=== PATIENT | male | born 1980 | race Caucasian/White ===

== ENCOUNTER 2018-07-09 22:27 | Inpatient (IN) | payer OTHER ==
[~2018-07-09] VITALS: Ht 182.9 cm; Wt 110.9 kg
[2018-07-09 22:26] VITALS: BP 121/59
[2018-07-09 23:10] LABS: BASOPHIL % 0.4 % (0-2); PLATELET COUNT 145 x10^3mcL (130-400); RED CELL DISTRIBUTION WIDTH 14.3 % (11.5-14.5)
[2018-07-09 23:26] LABS: CALCIUM 9.3 mg/dL (8.5-10.1); CARBON DIOXIDE 18.5 mmol/L (21-32); CREATININE SERUM 2.2 mg/dL (0.7-1.3); POTASSIUM SERUM 3.6 mmol/L (3.5-5.1)
[2018-07-09 23:30] LABS: AMPHETAMINE QUAL UR NONE DETECTED (See below)
[2018-07-09 23:30] LABS: ALBUMIN 2.7 g/dL (3.4-5.0); BILIRUBIN TOTAL 0.11 mg/dL (0.20-1.00); TOTAL PROTEIN, SERUM 5.8 g/dL (6.4-8.2)
[2018-07-10] VITALS (18 sets, daily range): BP systolic 68–126; BP diastolic 42–85
[2018-07-10 02:08] LABS: MAGNESIUM 2.7 mg/dL (1.8-2.4)
[2018-07-10 02:36] LABS: PHOSPHOROUS 14.2 mg/dL (2.5-4.9)
[2018-07-10 03:19] LABS: BASOPHIL % 0.3 % (0-2); RED CELL DISTRIBUTION WIDTH 14.1 % (11.5-14.5)
[2018-07-10 03:20] LABS: CALCIUM 7.6 mg/dL (8.5-10.1); CREATININE SERUM 2.6 mg/dL (0.7-1.3); POTASSIUM SERUM 4.1 mmol/L (3.5-5.1)
[2018-07-10 03:24] LABS: MAGNESIUM 2.4 mg/dL (1.8-2.4)
[2018-07-10 03:44] LABS: PHOSPHOROUS 9.8 mg/dL (2.5-4.9); PLATELET COUNT 168 x10^3mcL (130-400)
[2018-07-10 05:27] LABS: BILIRUBIN DIRECT 0.11 mg/dL (0.0-0.2); BILIRUBIN TOTAL 0.38 mg/dL (0.20-1.00)
[2018-07-10 05:34] LABS: ALBUMIN 2.7 g/dL (3.4-5.0); TOTAL PROTEIN, SERUM 5.7 g/dL (6.4-8.2)
[2018-07-10 06:10] LABS: BASOPHIL % 0.1 % (0-2); RED CELL DISTRIBUTION WIDTH 14.3 % (11.5-14.5)
[2018-07-10 06:27] LABS: PLATELET COUNT 169 x10^3mcL (130-400)
[2018-07-10 09:04] LABS: rbc morphology (normal/abnorm) ABNORMAL (NORMAL)
[2018-07-10 12:30] LABS: CALCIUM 7.3 mg/dL (8.5-10.1); CARBON DIOXIDE 26.3 mmol/L (21-32); CREATININE SERUM 3.7 mg/dL (0.7-1.3); POTASSIUM SERUM 4.3 mmol/L (3.5-5.1)
[2018-07-11] VITALS (14 sets, daily range): BP systolic 108–165; BP diastolic 36–69
[2018-07-11 05:24] LABS: PLATELET COUNT 137 x10^3mcL (130-400)
[2018-07-11 05:25] LABS: CALCIUM 6.5 mg/dL (8.5-10.1); CARBON DIOXIDE 21.7 mmol/L (21-32)
[2018-07-11 05:30] LABS: CREATININE SERUM 6.5 mg/dL (0.7-1.3); POTASSIUM SERUM 7.4 mmol/L (3.5-5.1)
[2018-07-11 05:42] LABS: RED CELL DISTRIBUTION WIDTH 14.7 % (11.5-14.5)
[2018-07-11 06:07] LABS: MONOCYTE 3 % (0-7); SEGMENTED NEUTROPHILS 75 % (37-75)
[2018-07-11 06:08] LABS: BAND NEUTROPHIL 14 % (0-10); METAMYELOCTE 4 % (0-2); MYELOCYTE 1 % (0-2)
[2018-07-11 06:14] LABS: PLATELET MORPHOLOGY PLATELETS DECREASED; burr cell (echinocyte) 1+; rbc morphology (normal/abnorm) ABNORMAL (NORMAL)
[2018-07-11 11:19] LABS: BILIRUBIN DIRECT 0.14 mg/dL (0.0-0.2); BILIRUBIN TOTAL 0.43 mg/dL (0.20-1.00)
[2018-07-11 11:31] LABS: ALBUMIN 2.1 g/dL (3.4-5.0); TOTAL PROTEIN, SERUM 5.3 g/dL (6.4-8.2)
[2018-07-11 15:23] LABS: UA SPECIFIC GRAVITY >=1.030 (1.005-1.035); microscopic required? YES; urine erythrocyte 3+ (NEGATIVE)
[2018-07-11 15:32] LABS: PLATELET COUNT 117 x10^3mcL (130-400); RED CELL DISTRIBUTION WIDTH 14.7 % (11.5-14.5)
[2018-07-11 15:39] LABS: BILIRUBIN TOTAL 0.5 mg/dL (0.20-1.00); CALCIUM 6.9 mg/dL (8.5-10.1); CARBON DIOXIDE 19.1 mmol/L (21-32)
[2018-07-11 15:41] LABS: ALBUMIN 1.8 g/dL (3.4-5.0); TOTAL PROTEIN, SERUM 5.1 g/dL (6.4-8.2)
[2018-07-11 15:42] LABS: CREATININE SERUM 7.6 mg/dL (0.7-1.3); POTASSIUM SERUM 7.1 mmol/L (3.5-5.1)
[2018-07-11 15:43] LABS: BAND NEUTROPHIL 10 % (0-10); BASOPHIL 0 % (0-2); METAMYELOCTE 1 % (0-2); MONOCYTE 2 % (0-7); SEGMENTED NEUTROPHILS 82 % (37-75)
[2018-07-11 15:44] LABS: rbc morphology (normal/abnorm) ABNORMAL (NORMAL)
[2018-07-11 18:35] LABS: CALCIUM 6.9 mg/dL (8.5-10.1); CARBON DIOXIDE 22.9 mmol/L (21-32)
[2018-07-11 18:37] LABS: CREATININE SERUM 8.4 mg/dL (0.7-1.3); POTASSIUM SERUM 5.8 mmol/L (3.5-5.1)
[2018-07-11 18:45] LABS: PLATELET COUNT 118 x10^3mcL (130-400)
[2018-07-11 18:57] LABS: BAND NEUTROPHIL 12 % (0-10); BASOPHIL 0 % (0-2); METAMYELOCTE 2 % (0-2); MONOCYTE 2 % (0-7); SEGMENTED NEUTROPHILS 80 % (37-75)
[2018-07-11 18:58] LABS: rbc morphology (normal/abnorm) ABNORMAL (NORMAL)
[2018-07-12] VITALS (17 sets, daily range): BP systolic 118–270; BP diastolic 65–159
[2018-07-12 00:37] LABS: PLATELET COUNT 102 x10^3mcL (130-400); RED CELL DISTRIBUTION WIDTH 15.1 % (11.5-14.5)
[2018-07-12 00:41] LABS: CALCIUM 7.4 mg/dL (8.5-10.1); CARBON DIOXIDE 20.9 mmol/L (21-32)
[2018-07-12 00:46] LABS: POTASSIUM SERUM 6.7 mmol/L (3.5-5.1)
[2018-07-12 00:47] LABS: CREATININE SERUM 8.8 mg/dL (0.7-1.3)
[2018-07-12 01:06] LABS: BAND NEUTROPHIL 17 % (0-10); METAMYELOCTE 3 % (0-2); MONOCYTE 2 % (0-7); MYELOCYTE 3 % (0-2); SEGMENTED NEUTROPHILS 70 % (37-75)
[2018-07-12 01:11] LABS: PLATELET MORPHOLOGY PLATELETS DECREASED; burr cell (echinocyte) 2+; rbc morphology (normal/abnorm) ABNORMAL (NORMAL)
[2018-07-12 05:30] LABS: PLATELET COUNT 100 x10^3mcL (130-400); RED CELL DISTRIBUTION WIDTH 15.5 % (11.5-14.5)
[2018-07-12 05:39] LABS: BILIRUBIN DIRECT 0.18 mg/dL (0.0-0.2); BILIRUBIN TOTAL 0.66 mg/dL (0.20-1.00); CALCIUM 7.3 mg/dL (8.5-10.1); CARBON DIOXIDE 23.4 mmol/L (21-32)
[2018-07-12 05:43] LABS: ALBUMIN 2.5 g/dL (3.4-5.0); BAND NEUTROPHIL 21 % (0-10); METAMYELOCTE 11 % (0-2); MYELOCYTE 3 % (0-2); SEGMENTED NEUTROPHILS 65 % (37-75); TOTAL PROTEIN, SERUM 5.6 g/dL (6.4-8.2)
[2018-07-12 05:44] LABS: POTASSIUM SERUM 5.9 mmol/L (3.5-5.1)
[2018-07-12 05:45] LABS: CREATININE SERUM 9.2 mg/dL (0.7-1.3)
[2018-07-12 05:47] LABS: burr cell (echinocyte) 2+; rbc morphology (normal/abnorm) ABNORMAL (NORMAL)
[2018-07-12 05:48] LABS: PLATELET MORPHOLOGY PLATELETS DECREASED
[2018-07-12 07:59] LABS: MAGNESIUM 1.4 mg/dL (1.8-2.4); PHOSPHOROUS 5.8 mg/dL (2.5-4.9)
[2018-07-12 11:40] LABS: BILIRUBIN DIRECT 0.15 mg/dL (0.0-0.2); BILIRUBIN TOTAL 0.63 mg/dL (0.20-1.00); CALCIUM 7.4 mg/dL (8.5-10.1); POTASSIUM SERUM 4.2 mmol/L (3.5-5.1)
[2018-07-12 11:46] LABS: ALBUMIN 2.3 g/dL (3.4-5.0); CREATININE SERUM 9.5 mg/dL (0.7-1.3); TOTAL PROTEIN, SERUM 5.6 g/dL (6.4-8.2)
[2018-07-12 11:48] LABS: PLATELET COUNT 95 x10^3mcL (130-400); RED CELL DISTRIBUTION WIDTH 14.7 % (11.5-14.5)
[2018-07-12 13:10] LABS: BAND NEUTROPHIL 14 % (0-10); BASOPHIL 0 % (0-2); METAMYELOCTE 2 % (0-2); MONOCYTE 2 % (0-7); MYELOCYTE 2 % (0-2); PLATELET MORPHOLOGY PLATELETS DECREASED; SEGMENTED NEUTROPHILS 77 % (37-75)
[2018-07-12 13:11] LABS: rbc morphology (normal/abnorm) ABNORMAL (NORMAL)
[2018-07-12 13:12] LABS: MAGNESIUM 1.9 mg/dL (1.8-2.4); PHOSPHOROUS 4.8 mg/dL (2.5-4.9)
[2018-07-12 18:25] LABS: MAGNESIUM 1.5 mg/dL (1.8-2.4); PHOSPHOROUS 3.2 mg/dL (2.5-4.9)
[2018-07-12 18:26] LABS: BILIRUBIN DIRECT 0.21 mg/dL (0.0-0.2); BILIRUBIN TOTAL 1.16 mg/dL (0.20-1.00); CARBON DIOXIDE 29.5 mmol/L (21-32); POTASSIUM SERUM 3.9 mmol/L (3.5-5.1)
[2018-07-12 18:30] LABS: ALBUMIN 2.7 g/dL (3.4-5.0)
[2018-07-12 19:15] LABS: PLATELET COUNT 99 x10^3mcL (130-400); RED CELL DISTRIBUTION WIDTH 14.5 % (11.5-14.5)
[2018-07-12 19:16] LABS: SEGMENTED NEUTROPHILS 70 % (37-75)
[2018-07-12 19:20] LABS: BAND NEUTROPHIL 25 % (0-10)
[2018-07-12 19:21] LABS: MONOCYTE 4 % (0-7); rbc morphology (normal/abnorm) ABNORMAL (NORMAL)
[2018-07-12 19:22] LABS: PLATELET MORPHOLOGY PLATELETS DECREASED
[2018-07-12 20:04] LABS: PLATELET COUNT 100 x10^3mcL (130-400); RED CELL DISTRIBUTION WIDTH 14.8 % (11.5-14.5)
[2018-07-12 20:07] LABS: BAND NEUTROPHIL 22 % (0-10); MONOCYTE 2 % (0-7); SEGMENTED NEUTROPHILS 75 % (37-75); rbc morphology (normal/abnorm) ABNORMAL (NORMAL)
[2018-07-12 20:08] LABS: PLATELET MORPHOLOGY PLATELETS DECREASED
[2018-07-13] VITALS (17 sets, daily range): BP systolic 104–188; BP diastolic 66–115
[2018-07-13 01:29] LABS: MAGNESIUM 1.5 mg/dL (1.8-2.4); PHOSPHOROUS 4.3 mg/dL (2.5-4.9)
[2018-07-13 01:48] LABS: BILIRUBIN DIRECT 0.29 mg/dL (0.0-0.2); BILIRUBIN TOTAL 1.26 mg/dL (0.20-1.00); TOTAL PROTEIN, SERUM 6.6 g/dL (6.4-8.2)
[2018-07-13 01:51] LABS: BAND NEUTROPHIL 10 % (0-10); METAMYELOCTE 3 % (0-2); MONOCYTE 1 % (0-7); PROMYELOCYTE 2 % (0-0); SEGMENTED NEUTROPHILS 83 % (37-75)
[2018-07-13 01:53] LABS: rbc morphology (normal/abnorm) NORMAL (NORMAL)
[2018-07-13 01:54] LABS: PLATELET MORPHOLOGY PLATELETS DECREASED
[2018-07-13 01:57] LABS: ALBUMIN 3.1 g/dL (3.4-5.0)
[2018-07-13 02:40] LABS: PLATELET COUNT 121 x10^3mcL (130-400)
[2018-07-13 04:48] LABS: CALCIUM 8.4 mg/dL (8.5-10.1); CARBON DIOXIDE 26.8 mmol/L (21-32); POTASSIUM SERUM 3.4 mmol/L (3.5-5.1)
[2018-07-13 04:50] LABS: CREATININE SERUM 7.9 mg/dL (0.7-1.3)
[2018-07-13 06:09] LABS: CALCIUM 8.4 mg/dL (8.5-10.1); CARBON DIOXIDE 28.2 mmol/L (21-32); PLATELET COUNT 98 x10^3mcL (130-400); POTASSIUM SERUM 3.9 mmol/L (3.5-5.1); RED CELL DISTRIBUTION WIDTH 15.3 % (11.5-14.5)
[2018-07-13 06:12] LABS: CALCIUM 8.4 mg/dL (8.5-10.1); CARBON DIOXIDE 28.3 mmol/L (21-32); POTASSIUM SERUM 3.9 mmol/L (3.5-5.1); TOTAL PROTEIN, SERUM 6.6 g/dL (6.4-8.2)
[2018-07-13 06:22] LABS: BAND NEUTROPHIL 10 % (0-10); MAGNESIUM 1.9 mg/dL (1.8-2.4); METAMYELOCTE 3 % (0-2); MONOCYTE 1 % (0-7); PROMYELOCYTE 2 % (0-0); SEGMENTED NEUTROPHILS 83 % (37-75); rbc morphology (normal/abnorm) NORMAL (NORMAL)
[2018-07-13 06:23] LABS: PLATELET MORPHOLOGY PLATELETS DECREASED
[2018-07-13 06:31] LABS: CREATININE SERUM 8.3 mg/dL (0.7-1.3)
[2018-07-13 06:32] LABS: ALBUMIN 3.1 g/dL (3.4-5.0)
[2018-07-13 06:33] LABS: CREATININE SERUM 8.4 mg/dL (0.7-1.3)
[2018-07-13 07:44] LABS: BILIRUBIN DIRECT 0.23 mg/dL (0.0-0.2); TOTAL PROTEIN, SERUM 6.6 g/dL (6.4-8.2)
[2018-07-13 07:50] LABS: ALBUMIN 3.1 g/dL (3.4-5.0)
[2018-07-13 13:01] LABS: PLATELET COUNT 89 x10^3mcL (130-400); RED CELL DISTRIBUTION WIDTH 15.4 % (11.5-14.5)
[2018-07-13 13:02] LABS: MAGNESIUM 2.1 mg/dL (1.8-2.4); PHOSPHOROUS 5.6 mg/dL (2.5-4.9)
[2018-07-13 13:08] LABS: ALBUMIN 2.8 g/dL (3.4-5.0); BILIRUBIN TOTAL 0.9 mg/dL (0.20-1.00); CALCIUM 8.4 mg/dL (8.5-10.1); CARBON DIOXIDE 28.6 mmol/L (21-32); CREATININE SERUM 8.8 mg/dL (0.7-1.3); POTASSIUM SERUM 3.8 mmol/L (3.5-5.1); TOTAL PROTEIN, SERUM 6.2 g/dL (6.4-8.2)
[2018-07-13 13:11] LABS: ALBUMIN 3.1 g/dL (3.4-5.0); BILIRUBIN DIRECT 0.23 mg/dL (0.0-0.2); BILIRUBIN TOTAL 0.96 mg/dL (0.20-1.00); TOTAL PROTEIN, SERUM 6.3 g/dL (6.4-8.2)
[2018-07-13 14:37] LABS: BAND NEUTROPHIL 15 % (0-10); SEGMENTED NEUTROPHILS 75 % (37-75)
[2018-07-13 14:38] LABS: MONOCYTE 7 % (0-7); rbc morphology (normal/abnorm) NORMAL (NORMAL)
[2018-07-13 14:39] LABS: PLATELET MORPHOLOGY PLATELETS DECREASED
[2018-07-13 19:13] LABS: CARBON DIOXIDE 25.8 mmol/L (21-32); TOTAL PROTEIN, SERUM 6.2 g/dL (6.4-8.2)
[2018-07-13 19:14] LABS: ALBUMIN 2.3 g/dL (3.4-5.0); ALBUMIN 2.8 g/dL (3.4-5.0); BILIRUBIN DIRECT 0.23 mg/dL (0.0-0.2); BILIRUBIN TOTAL 0.8 mg/dL (0.20-1.00); TOTAL PROTEIN, SERUM 5.2 g/dL (6.4-8.2)
[2018-07-13 19:27] LABS: MAGNESIUM 2.2 mg/dL (1.8-2.4); PHOSPHOROUS 6.7 mg/dL (2.5-4.9)
[2018-07-13 19:37] LABS: UA SPECIFIC GRAVITY >=1.030 (1.005-1.035); microscopic required? YES; urine erythrocyte 3+ (NEGATIVE)
[2018-07-14] VITALS (18 sets, daily range): BP systolic 104–182; BP diastolic 58–130; Ht 182.9 cm; Wt 110.9 kg
[2018-07-14 01:52] LABS: PLATELET COUNT 105 x10^3mcL (130-400); RED CELL DISTRIBUTION WIDTH 15.6 % (11.5-14.5)
[2018-07-14 01:54] LABS: MAGNESIUM 2.5 mg/dL (1.8-2.4); PHOSPHOROUS 8.1 mg/dL (2.5-4.9)
[2018-07-14 01:55] LABS: BILIRUBIN TOTAL 0.95 mg/dL (0.20-1.00); CALCIUM 8.1 mg/dL (8.5-10.1); CARBON DIOXIDE 29.1 mmol/L (21-32); POTASSIUM SERUM 4.9 mmol/L (3.5-5.1); TOTAL PROTEIN, SERUM 7.2 g/dL (6.4-8.2)
[2018-07-14 01:58] LABS: ALBUMIN 3.2 g/dL (3.4-5.0); CREATININE SERUM 10.3 mg/dL (0.7-1.3)
[2018-07-14 02:08] LABS: SEGMENTED NEUTROPHILS 90 % (37-75)
[2018-07-14 02:09] LABS: BAND NEUTROPHIL 5 % (0-10); MONOCYTE 3 % (0-7); PLATELET MORPHOLOGY PLATELETS DECREASED; rbc morphology (normal/abnorm) NORMAL (NORMAL)
[2018-07-14 07:03] LABS: BILIRUBIN TOTAL 0.89 mg/dL (0.20-1.00); CALCIUM 8.1 mg/dL (8.5-10.1); CARBON DIOXIDE 26.8 mmol/L (21-32); POTASSIUM SERUM 4.7 mmol/L (3.5-5.1); TOTAL PROTEIN, SERUM 7.1 g/dL (6.4-8.2)
[2018-07-14 07:04] LABS: ALBUMIN 3.2 g/dL (3.4-5.0); CREATININE SERUM 10.8 mg/dL (0.7-1.3)
[2018-07-14 07:06] LABS: MAGNESIUM 2.5 mg/dL (1.8-2.4); PHOSPHOROUS 6.9 mg/dL (2.5-4.9)
[2018-07-14 07:07] LABS: PLATELET COUNT 104 x10^3mcL (130-400); RED CELL DISTRIBUTION WIDTH 15.8 % (11.5-14.5)
[2018-07-14 10:55] LABS: BAND NEUTROPHIL 17 % (0-10); BASOPHIL 0 % (0-2); MONOCYTE 5 % (0-7); SEGMENTED NEUTROPHILS 76 % (37-75)
[2018-07-14 10:56] LABS: PLATELET MORPHOLOGY PLATELETS DECREASED
[2018-07-14 11:00] LABS: rbc morphology (normal/abnorm) NORMAL (NORMAL)
[2018-07-14 12:20] LABS: PLATELET COUNT 111 x10^3mcL (130-400); RED CELL DISTRIBUTION WIDTH 15.6 % (11.5-14.5)
[2018-07-14 12:22] LABS: MAGNESIUM 2.6 mg/dL (1.8-2.4); PHOSPHOROUS 6.2 mg/dL (2.5-4.9)
[2018-07-14 13:03] LABS: BAND NEUTROPHIL 13 % (0-10); BASOPHIL 0 % (0-2); MONOCYTE 7 % (0-7); SEGMENTED NEUTROPHILS 77 % (37-75)
[2018-07-14 13:04] LABS: BILIRUBIN TOTAL 0.7 mg/dL (0.20-1.00); CALCIUM 8.4 mg/dL (8.5-10.1); POTASSIUM SERUM 4.9 mmol/L (3.5-5.1); TOTAL PROTEIN, SERUM 6.8 g/dL (6.4-8.2)
[2018-07-14 13:07] LABS: ALBUMIN 2.9 g/dL (3.4-5.0); CREATININE SERUM 11.2 mg/dL (0.7-1.3); PLATELET MORPHOLOGY PLATELETS DECREASED
[2018-07-14 18:56] LABS: PLATELET COUNT 108 x10^3mcL (130-400); RED CELL DISTRIBUTION WIDTH 15.1 % (11.5-14.5)
[2018-07-14 19:13] LABS: BILIRUBIN DIRECT 0.23 mg/dL (0.0-0.2); BILIRUBIN TOTAL 0.78 mg/dL (0.20-1.00); CALCIUM 8.1 mg/dL (8.5-10.1); CARBON DIOXIDE 25.7 mmol/L (21-32); MAGNESIUM 2.8 mg/dL (1.8-2.4); POTASSIUM SERUM 5.4 mmol/L (3.5-5.1); TOTAL PROTEIN, SERUM 6.7 g/dL (6.4-8.2)
[2018-07-14 19:18] LABS: ALBUMIN 2.9 g/dL (3.4-5.0)
[2018-07-14 19:21] LABS: BAND NEUTROPHIL 11 % (0-10); BASOPHIL 0 % (0-2); MONOCYTE 3 % (0-7); SEGMENTED NEUTROPHILS 82 % (37-75); rbc morphology (normal/abnorm) ABNORMAL (NORMAL)
[2018-07-15] VITALS (12 sets, daily range): BP systolic 125–185; BP diastolic 78–125
[2018-07-15 01:15] LABS: PLATELET COUNT 113 x10^3mcL (130-400); RED CELL DISTRIBUTION WIDTH 15.5 % (11.5-14.5)
[2018-07-15 01:17] LABS: SEGMENTED NEUTROPHILS 80 % (37-75)
[2018-07-15 01:19] LABS: BAND NEUTROPHIL 10 % (0-10); MONOCYTE 6 % (0-7); PLATELET MORPHOLOGY PLATELETS DECREASED; rbc morphology (normal/abnorm) NORMAL (NORMAL)
[2018-07-15 01:56] LABS: ALBUMIN 3.6 g/dL (3.4-5.0); BILIRUBIN DIRECT 0.27 mg/dL (0.0-0.2); BILIRUBIN TOTAL 0.82 mg/dL (0.20-1.00); CALCIUM 8.3 mg/dL (8.5-10.1); CARBON DIOXIDE 26.7 mmol/L (21-32); MAGNESIUM 2.9 mg/dL (1.8-2.4); PHOSPHOROUS 8.3 mg/dL (2.5-4.9); POTASSIUM SERUM 5.3 mmol/L (3.5-5.1); TOTAL PROTEIN, SERUM 7.4 g/dL (6.4-8.2)
[2018-07-15 02:06] LABS: CREATININE SERUM 12.7 mg/dL (0.7-1.3)
[2018-07-15 05:37] LABS: PLATELET COUNT 111 x10^3mcL (130-400); RED CELL DISTRIBUTION WIDTH 15.6 % (11.5-14.5)
[2018-07-15 05:41] LABS: BAND NEUTROPHIL 3 % (0-10); MONOCYTE 1 % (0-7); SEGMENTED NEUTROPHILS 95 % (37-75); rbc morphology (normal/abnorm) NORMAL (NORMAL)
[2018-07-15 05:42] LABS: PLATELET MORPHOLOGY PLATELETS DECREASED
[2018-07-15 06:18] LABS: CARBON DIOXIDE 21.8 mmol/L (21-32); POTASSIUM SERUM 5.2 mmol/L (3.5-5.1)
[2018-07-15 06:19] LABS: ALBUMIN 3.4 g/dL (3.4-5.0); CALCIUM 8.7 mg/dL (8.5-10.1); TOTAL PROTEIN, SERUM 7.1 g/dL (6.4-8.2)
[2018-07-15 06:20] LABS: BILIRUBIN DIRECT 0.26 mg/dL (0.0-0.2); BILIRUBIN TOTAL 0.8 mg/dL (0.20-1.00); PHOSPHOROUS 8.6 mg/dL (2.5-4.9)
[2018-07-15 06:21] LABS: MAGNESIUM 2.9 mg/dL (1.8-2.4)
[2018-07-15 06:23] LABS: CREATININE SERUM 12.7 mg/dL (0.7-1.3)
[2018-07-15 12:27] LABS: PLATELET COUNT 146 x10^3mcL (130-400)
[2018-07-15 12:29] LABS: RED CELL DISTRIBUTION WIDTH 15.5 % (11.5-14.5)
[2018-07-15 12:43] LABS: BAND NEUTROPHIL 12 % (0-10); BASOPHIL 0 % (0-2); MONOCYTE 3 % (0-7); SEGMENTED NEUTROPHILS 82 % (37-75)
[2018-07-15 12:44] LABS: PLATELET MORPHOLOGY PLATELETS NORMAL; rbc morphology (normal/abnorm) ABNORMAL (NORMAL)
[2018-07-15 12:53] LABS: BILIRUBIN DIRECT 0.37 mg/dL (0.0-0.2); BILIRUBIN TOTAL 1.15 mg/dL (0.20-1.00); CALCIUM 9.6 mg/dL (8.5-10.1); CARBON DIOXIDE 21.5 mmol/L (21-32); MAGNESIUM 3.6 mg/dL (1.8-2.4); POTASSIUM SERUM 5.2 mmol/L (3.5-5.1)
[2018-07-15 12:56] LABS: CREATININE SERUM 13.7 mg/dL (0.7-1.3); TOTAL PROTEIN, SERUM 9.7 g/dL (6.4-8.2)
[2018-07-15 12:58] LABS: PHOSPHOROUS 9.3 mg/dL (2.5-4.9)
[2018-07-15 18:14] LABS: PLATELET COUNT 131 x10^3mcL (130-400)
[2018-07-15 18:20] LABS: RED CELL DISTRIBUTION WIDTH 15.5 % (11.5-14.5)
[2018-07-15 18:38] LABS: BILIRUBIN DIRECT 0.39 mg/dL (0.0-0.2); BILIRUBIN TOTAL 0.93 mg/dL (0.20-1.00); CARBON DIOXIDE 21.7 mmol/L (21-32); MAGNESIUM 3.4 mg/dL (1.8-2.4)
[2018-07-15 18:45] LABS: POTASSIUM SERUM 5.7 mmol/L (3.5-5.1)
[2018-07-15 18:46] LABS: CREATININE SERUM 14.6 mg/dL (0.7-1.3); PHOSPHOROUS 9.7 mg/dL (2.5-4.9)
[2018-07-15 18:52] LABS: BAND NEUTROPHIL 0 % (0-10); BASOPHIL 0 % (0-2); MONOCYTE 2 % (0-7); SEGMENTED NEUTROPHILS 95 % (37-75)
[2018-07-15 18:54] LABS: PLATELET MORPHOLOGY PLATELETS NORMAL; rbc morphology (normal/abnorm) ABNORMAL (NORMAL)
== END 2018-07-15 21:30 | disposition short-term general hospital (02) | DRG 870 ==
LOC: ED 22:27 → EDBD 22:27 → IC 07-10 01:24
PROVIDERS: Emergency Medicine; Internal Medicine
PROC: 5A1955Z Respiratory Ventilation, Greater than 96 Consecutive Hours (ICD-10-PCS; principal; 2018-07-10)
PROC: 0BH17EZ Insertion of Endotracheal Airway into Trachea, Via Natural or Artificial Opening (ICD-10-PCS; 2018-07-10)
PROC: 02HV33Z Insertion of Infusion Device into Superior Vena Cava, Percutaneous Approach (ICD-10-PCS; 2018-07-10)
PROC: B548ZZA Ultrasonography of Superior Vena Cava, Guidance (ICD-10-PCS; 2018-07-10)
PROC: 04HY32Z Insertion of Monitoring Device into Lower Artery, Percutaneous Approach (ICD-10-PCS; 2018-07-10)
PROC: 4A133B1 Monitoring of Arterial Pressure, Peripheral, Percutaneous Approach (ICD-10-PCS; 2018-07-10)
PROC: 4A133J1 Monitoring of Arterial Pulse, Peripheral, Percutaneous Approach (ICD-10-PCS; 2018-07-10)
PROC: 5A12012 Performance of Cardiac Output, Single, Manual (ICD-10-PCS; 2018-07-10)
PROC: 5A2204Z Restoration of Cardiac Rhythm, Single (ICD-10-PCS; 2018-07-12)
PROC: 0B968ZZ Drainage of Right Lower Lobe Bronchus, Via Natural or Artificial Opening Endoscopic (ICD-10-PCS; 2018-07-12)
PROC: 0B948ZZ Drainage of Right Upper Lobe Bronchus, Via Natural or Artificial Opening Endoscopic (ICD-10-PCS; 2018-07-12)
PROC: 0B958ZZ Drainage of Right Middle Lobe Bronchus, Via Natural or Artificial Opening Endoscopic (ICD-10-PCS; 2018-07-12)
PROC: 0B938ZZ Drainage of Right Main Bronchus, Via Natural or Artificial Opening Endoscopic (ICD-10-PCS; 2018-07-12)
PROC: 0B978ZZ Drainage of Left Main Bronchus, Via Natural or Artificial Opening Endoscopic (ICD-10-PCS; 2018-07-12)
PROC: 02HV33Z Insertion of Infusion Device into Superior Vena Cava, Percutaneous Approach (ICD-10-PCS; 2018-07-12)
PROC: B548ZZA Ultrasonography of Superior Vena Cava, Guidance (ICD-10-PCS; 2018-07-12)
PROC: 5A1D70Z Performance of Urinary Filtration, Intermittent, Less than 6 Hours Per Day (ICD-10-PCS; 2018-07-15)
DX: A41.9 Sepsis, unspecified organism (principal); R65.21 Severe sepsis with septic shock; J96.01 Acute respiratory failure with hypoxia; J69.0 Pneumonitis due to inhalation of food and vomit; N17.0 Acute kidney failure with tubular necrosis; K55.049 Acute infarction of large intestine, extent unspecified; K72.01 Acute and subacute hepatic failure with coma; J96.02 Acute respiratory failure with hypercapnia; I46.9 Cardiac arrest, cause unspecified; G93.1 Anoxic brain damage, not elsewhere classified; I48.92 Unspecified atrial flutter; K92.2 Gastrointestinal hemorrhage, unspecified; D68.59 Other primary thrombophilia; T48.1X1A Poisoning by skeletal muscle relaxants [neuromuscular blocking agents], accidental (unintentional), initial encounter; N18.9 Chronic kidney disease, unspecified; E87.5 Hyperkalemia; D69.6 Thrombocytopenia, unspecified; E83.41 Hypermagnesemia; I48.91 Unspecified atrial fibrillation; Z66 Do not resuscitate; G89.29 Other chronic pain; M54.9 Dorsalgia, unspecified; Z68.33 Body mass index [BMI] 33.0-33.9, adult; Y92.89 Other specified places as the place of occurrence of the external cause; Z76.82 Awaiting organ transplant status
CPT/HCPCS: 31645; 36556; 36600; 82962; 83880; 87804; A4628; A4719; C9113; G0480; J0282; J0610; J1250; J1265; J1642; J1644; J1720; J1815; J1940; J2370; J2543; J2597; J2930; J3490; J7030; J7040; J7050; J7060; J7613; J7620; P9047; Q0092